=== PATIENT | male | born 1950 | race Caucasian/White ===

== ENCOUNTER 2022-12-10 13:14 | Outpatient (CLI) | payer MEDICARE, SELFPAY ==
--- NOTE | 2022-12-10 13:27 | CTR_ITS ---
PROCEDURE INFORMATION: Exam: CT Abdomen And Pelvis With Contrast Exam date and time: 12/10/2022 1:51 PM Age: 72 years old Clinical indication: Abdominal pain; Generalized; Patient HX: Umbilical pain x 3 weeks; Additional info: Genneralized abdominal pain TECHNIQUE: Imaging protocol: Computed tomography of the abdomen and pelvis with contrast. Radiation optimization: All CT scans at this facility use at least one of these dose optimization techniques: automated exposure control; mA and/or kV adjustment per patient size (includes targeted exams where dose is matched to clinical indication); or iterative reconstruction. Contrast material: OMNI 350; Contrast volume: 100 ml; Contrast route: INTRAVENOUS (IV); REPORTING DATA: Count of CT and Cardiac NM exams in prior 12 months: This patient has received 0 known CTs and 0 known cardiac nuclear medicine studies in the 12 months prior to the current study. COMPARISON: No relevant prior studies available. RADIATION DOSE METRICS: Total DLP (mGy-cm): 411.03 FINDINGS: Lungs: Bibasilar linear scarring-atelectasis. Coronary arteries: Probable coronary calcification. Liver: Minimal hepatomegaly without cirrhosis or suspicious lesion. Gallbladder and bile ducts: Normal. No calcified stones. No ductal dilation. Pancreas: Normal. No ductal dilation. Spleen: spleen size with multiple calcified granulomas. Adrenal glands: Normal. No mass. Kidneys and ureters: Right lower renal pole exophytic hypodense lesion measuring 10 mm, likely simple cysts. No hydronephrosis or obstructing calculi. Stomach and bowel: Moderate-large colorectal stool burden with colonic diverticulosis. There is probable minimal pericolonic stranding at the distal descending/proximal sigmoid junction suggesting mild acute diverticulitis. No bowel obstruction, pneumatosis or drainable abscess. Appendix: No evidence of appendicitis. Intraperitoneal space: Unremarkable. No free air. No significant fluid collection. Vasculature: No abdominal aortic aneurysm. Lymph nodes: No enlarged lymph nodes. Urinary bladder: Unremarkable as visualized. Reproductive: Minimal prostate enlargement. Bones/joints: Multilevel vertebral disc degeneration and endplate osteophytes. No acute osseous findings otherwise. Status post L4-L5 posterior surgical fusion hardware placement. Soft tissues: No acute findings. CT/CT abdomen pelvis w con* [id number] IMPRESSION: 1. Probable mild acute diverticulitis at the distal descending/proximal sigmoid colon junction. Moderate-large stool burden. No other acute bowel findings. 2. Minimal hepatomegaly. 3. Probable coronary calcification and minimal prostate enlargement. COMMENTS: Consistent with the [employer]'s Incidental Findings Committee white paper (J Am Rehana Radiol 2018): Any incidental renal lesion less than 1 cm or classified as too small to characterize, or any incidental cystic renal lesion characterized as simple-appearing, is likely benign. No follow-up imaging is recommended for these lesions per consensus recommendations based on imaging criteria.
[2022-12-10] MEDS: iohexol 350 mg/mL 500 mL Btl (per mL) IV (13:33)
== END 2022-12-10 13:15 | disposition home or self-care (01) ==
LOC: RAD 13:21
PROVIDERS: PCP Family Medicine; Visit Provider Nurse Practitioner Family
DX: R10.84 Generalized abdominal pain (principal); R16.0 Hepatomegaly, not elsewhere classified; R93.3 Abnormal findings on diagnostic imaging of other parts of digestive tract
CPT/HCPCS: 74177; Q9967